=== PATIENT | female | born 1995 | race Caucasian/White ===

== ENCOUNTER 2017-07-31 12:20 | Emergency (ER) | payer BC ==
[~2017-07-31] VITALS: Ht 162.6 cm; Wt 51.8 kg
[~2017-07-31 12:20] MED LIST: INFL100P IV; SPRI28TA PO; TYLE325T PO; [UNRECOGNIZED DRUG - OTHER] PO
[2017-07-31 12:41] VITALS: BP 106/63; PULSE 97; RESP 18; TEMP 99.7; O2SAT 99
[2017-07-31] MEDS ORDERED: PROCHLORPERAZINE INJ 10 MG/2 ML VIAL IV PUSH ONE (13:15)
[2017-07-31] MEDS ORDERED: SODIUM CHLOR 0.9% 1000 ML INJ 1,000 ML IV ONE (13:15)
[2017-07-31] MEDS ORDERED: KETOROLAC TROMETHAMINE 30 MG/ML (IVP) VIAL IV PUSH ONE (13:15)
[2017-07-31 13:20] VITALS: BP 92/65; PULSE 93; RESP 16; O2SAT 100
--- NOTE | 2017-07-31 13:22 | PD ---
HPI Chief Complaint: Headache Time Seen by Provider: 12:55 Travel History International Travel<30 days: No Contact w/Intl Traveler<30days: No Traveled to known affect area: No History of Present Illness HPI The patient was seen and examined in the presence of the nurse. This patient complains of having nausea and vomiting and diarrhea. She has history of ulcerative colitis and has been having rectal bleeding. She says that she is going to have a colectomy later this year. She feels dehydrated. She says when she gets dehydrated this brings on a rare migraine. She has a throbbing left-sided headache. No injury or thunderclap onset. No neurologic deficit. Symptom severity is moderate. She is not having abdominal pain at this time. Duration 1 week. No alleviating factors. No exacerbating factors. PFSH Past Medical History Seizures: Yes (ONCE YOUTH) ?: Not Social History Alcohol Use: No Tobacco Use: No Substance Use: No Allergies-Medications (Allergen,Severity, Reaction): Coded Allergies: metronidazole (Verified Allergy, Unknown, GASTRITIS, 03/24/17) Reported Meds & Prescriptions Reported Meds & Active Scripts Active Reported Remicade Inj (Infliximab) 100 Mg Inj 600 Mg IV Q6WKS Tylenol (Acetaminophen) 325 Mg Tab 650 Mg PO Q6WKS/REMICADE PRN [Benadryl Elixer] 25 Mg PO PRN Sprintec 28 (Norgestimate-Ethinyl Estradiol) 0.25-35 mg-Mcg Tab 1 Tab PO DAILY Review of Systems General / Constitutional: No: Fever Eyes: No: Visual changes HENT: Positive: Headaches Cardiovascular: No: Chest Pain or Discomfort Respiratory: No: Shortness of Breath Gastrointestinal: Positive: Nausea, Vomiting, Diarrhea, Hematochezia, No: Abdominal Pain Genitourinary: No: Dysuria Musculoskeletal: No: Pain Skin: No Rash Neurologic: No: Weakness Psychiatric: No: Depression Endocrine: No: Polydipsia Hematologic/Lymphatic: No: Easy Bruising Physical Exam Narrative GENERAL: Well-nourished, well-developed patient with headache and nausea . SKIN: Focused skin assessment reveals no rash and nodules. Skin is Warm and dry. HEAD: Atraumatic. Normocephalic. EYES: Pupils equal and round. No scleral icterus. No injection or drainage. ENT: No nasal bleeding or discharge. Mucous membranes pink and moist. Throat clear NECK: Trachea midline. No JVD. No meningeal signs CARDIOVASCULAR: Regular rate and rhythm. No murmur appreciated. RESPIRATORY: No accessory muscle use. Clear to auscultation. Breath sounds equal bilaterally. GASTROINTESTINAL: Abdomen soft, non-tender, nondistended. Hepatic and splenic margins not palpable. No external hemorrhoid or fissure. MUSCULOSKELETAL: No obvious deformities. No clubbing. No cyanosis. No edema. NEUROLOGICAL: Awake and alert. No obvious cranial nerve deficits. Motor grossly within normal limits. Normal speech. PSYCHIATRIC: Appropriate mood and affect; insight and judgment normal. Data Data Last Documented VS Vital Signs Date Time Temp Pulse Resp B/P (MAP) Pulse Ox O2 Delivery O2 Flow Rate FiO2 07/31/17 13:20 93 16 92/65 (74) 100 07/31/17 12:41 99.7 Orders Orders Complete Blood Count With Diff (07/31/17 12:44) Basic Metabolic Panel (Bmp) (07/31/17 13:11) Beta Hcg (Quant/Titer) (07/31/17 13:11) Sodium Chlor 0.9% 1000 Ml Inj (Ns 1000 M (07/31/17 13:15) Prochlorperazine Inj (Compazine Inj) (07/31/17 13:15) Ketorolac Inj (Toradol Inj) (07/31/17 13:15) Diphenhydramine Inj (Benadryl Inj) (07/31/17 14:45) Labs Laboratory Tests Test 07/31/17 13:05 White Blood Count 9.0 TH/MM3 Red Blood Count 4.37 MIL/MM3 Hemoglobin 12.9 GM/DL Hematocrit 38.2 % Mean Corpuscular Volume 87.3 FL Mean Corpuscular Hemoglobin 29.5 PG Mean Corpuscular Hemoglobin Concent 33.8 % Red Cell Distribution Width 14.5 % Platelet Count 404 TH/MM3 Mean Platelet Volume 8.5 FL Neutrophils (%) (Auto) 70.1 % Lymphocytes (%) (Auto) 18.1 % Monocytes (%) (Auto) 11.1 % Eosinophils (%) (Auto) 0.2 % Basophils (%) (Auto) 0.5 % Neutrophils # (Auto) 6.3 TH/MM3 Lymphocytes # (Auto) 1.6 TH/MM3 Monocytes # (Auto) 1.0 TH/MM3 Eosinophils # (Auto) 0.0 TH/MM3 Basophils # (Auto) 0.0 TH/MM3 CBC Comment DIFF FINAL Differential Comment Blood Urea Nitrogen 6 MG/DL Creatinine 0.72 MG/DL Random Glucose 82 MG/DL Calcium Level 8.9 MG/DL Sodium Level 137 MEQ/L Potassium Level 3.7 MEQ/L Chloride Level 103 MEQ/L Carbon Dioxide Level 25.3 MEQ/L Anion Gap 9 MEQ/L Estimat Glomerular Filtration Rate 104 ML/MIN Human Chorionic Gonadotropin, Quant LESS THAN 1 MIU/ML MDM Medical Decision Making Medical Screen Exam Complete: Yes Emergency Medical Condition: Yes Medical Record Reviewed: Yes Differential Diagnosis Colitis, dehydration, migraine, meningitis Narrative Course I have reviewed the patient's electronic medical record. IV placed and labs sent Gave her IV Compazine and IV Toradol and 1 L normal saline IV bolus I have no clinical suspicion of meningitis. She has no meningeal signs. CBC and metabolic studies are normal She is euvolemic However shortly after the Compazine injection she developed what I believe was a dystonic reaction consisting of involuntary muscular contraction of the jaw. I gave her 12.5 mg IV Benadryl and it promptly resolved I observed her for a while to make sure nothing else was happening. She is asymptomatic and wants to go home now Recommend GI follow-up Diagnosis Primary Impression: Rectal bleeding Additional Impressions: History of ulcerative colitis Acute dystonic reaction due to drugs Additional Instructions: Follow-up with GI physician Med/Other Pt SpecificInfo: Other Disposition: 01 DISCHARGE HOME Condition: Stable Neeraj Mendoza MD Jul 31, 2017 13:22
[2017-07-31 13:35] LABS: AUTOMATED NEUTROPHIL # 6.3 TH/MM3 (1.8-7.7); BASOPHIL % 0.5 % (0.0-2.0); EOSINOPHIL % 0.2 % (0.0-4.0); HEMATOCRIT 38.2 % (35.0-46.0); HEMOGLOBIN 12.9 GM/DL (11.6-15.3); LYMPH % 18.1 % (9.0-44.0); LYMPHOCYTE # 1.6 TH/MM3 (1.0-4.8); MEAN CELL VOLUME 87.3 FL (80.0-100.0); MEAN CORPUSCULAR HEMOGLOBIN 29.5 PG (27.0-34.0); MEAN CORPUSCULAR HGB CONC 33.8 % (32.0-36.0); MEAN PLATELET VOLUME 8.5 FL (7.0-11.0); MONO % 11.1 % (0.0-8.0); NEUT % 70.1 % (16.0-70.0); PLATELET COUNT 404 TH/MM3 (150-450); RED BLOOD COUNT 4.37 MIL/MM3 (4.00-5.30); RED CELL DISTRIBUTION WIDTH 14.5 % (11.6-17.2)
[2017-07-31 13:59] LABS: BICARBONATE 25.3 MEQ/L (21.0-32.0); BLOOD UREA NITROGEN 6 MG/DL (7-18); CALCIUM 8.9 MG/DL (8.5-10.1); CHLORIDE 103 MEQ/L (98-107); CREATININE 0.72 MG/DL (0.50-1.00); GLOMERULAR FILTRATION RATE 104 ML/MIN (>89); GLUCOSE,RANDOM 82 MG/DL (74-106); SODIUM (NA) 137 MEQ/L (136-145)
[2017-07-31] MEDS ORDERED: diphenhydrAMINE HCL 50 MG/ML VIAL IV PUSH ONE (14:45)
[2017-07-31 14:52] VITALS: BP 117/83; PULSE 95; RESP 16; O2SAT 100
== END 2017-07-31 17:10 | disposition home or self-care (01) ==
LOC: NEPD 12:20
DX: K51.911 Ulcerative colitis, unspecified with rectal bleeding (principal); G24.02 Drug induced acute dystonia; R51 Headache; Z88.8 Allergy status to other drugs, medicaments and biological substances
CPT/HCPCS: 80048; 84702; 84703; 85025; 96361; 96374; 96375; 99284; J0780; J1200; J1885; J7030